=== PATIENT | male | born 1960 | race American Indian/Alaskan Native ===

== ENCOUNTER 2016-12-04 09:55 | Emergency (ER) | payer OTHER ==
[2016-12-04 10:14] VITALS: TEMP 98.1
--- NOTE | 2016-12-04 10:59 | ED PDOC ---
Arrival/HPI - General Chief Complaint: Upper Extremity Problem/Injury Time Seen by Provider: 12/04/16 10:58 Historian: Patient - History of Present Illness Narrative History of Present Illness (Text): 12/04/16 10:59 This 55 yo male presents to this ED c/o facial rash x [employer]. Patient stated he applied OTC Cortizone 10 on his face, which it improved his rash. Patient is requesting a "shot" for his facial/allergy rash. Patient also stated that on his way to the ED, he noticed a few b/l thigh insect bites. He also stated his right anterior shoulder is painful x 1 week. Denies trauma, heavy lifting, fever, recent travel, sick contact, bed bugs, sob, wheezing, cp, abdominal pain , groin pain, dizziness, or abnormal gait. Time/Duration: Other (see hpi) Context: Home Past Medical History - Provider Review Nursing Documentation Reviewed: Yes - Infectious Disease Hx of Infectious Diseases: None - Psychiatric Hx Substance Use: No Family/Social History - Physician Review Nursing Documentation Reviewed: Yes Family/Social History: No Known Family HX Smoking Status: Current Some Days Smoker Hx Alcohol Use: No Hx Substance Use: No Allergies/Home Meds Allergies/Adverse Reactions: Allergies No Known Allergies Allergy (Verified 12/04/16 10:14) Review of Systems - Review of Systems Constitutional: Normal. absent: Fatigue, Weight Change, Fevers Eyes: Normal ENT: Normal Respiratory: Normal. absent: SOB, Cough, Sputum Cardiovascular: Normal. absent: Chest Pain, Palpitations Gastrointestinal: Normal. absent: Abdominal Pain, Nausea, Vomiting Genitourinary Male: Normal Musculoskeletal: Normal Skin: Rash Neurological: Normal. absent: Headache, Dizziness, Focal Weakness, Gait Changes , Speech Changes Endocrine: Normal Hemo/Lymphatic: Normal Psychiatric: Normal Physical Exam Vital Signs Temp Pulse Resp BP Pulse Ox 12/04/16 11:23 65 18 134/79 98 12/04/16 10:10 98.1 F 67 16 136/82 99 Temperature: Afebrile Blood Pressure: Normal Pulse: Regular Respiratory Rate: Normal Appearance: Positive for: Well-Appearing, Non-Toxic, Comfortable Pain Distress: None Mental Status: Positive for: Alert and Oriented X 3 - Systems Exam Head: Present: Atraumatic, Normocephalic Pupils: Present: PERRL Extroacular Muscles: Present: EOMI Conjunctiva: Present: Normal Mouth: Present: Moist Mucous Membranes Pharnyx: Present: Normal. No: ERYTHEMA, EXUDATE, TONSILS ENLARGED Neck: Present: Normal Range of Motion, Trachea Midline. No: Meningeal Signs Respiratory/Chest: Present: Clear to Auscultation, Good Air Exchange. No: Respiratory Distress, Accessory Muscle Use Cardiovascular: Present: Regular Rate and Rhythm, Normal S1, S2. No: Murmurs Abdomen: Present: Normal Bowel Sounds. No: Tenderness, Distention, Peritoneal Signs Back: Present: Normal Inspection. No: CVA Tenderness Upper Extremity: Present: Normal Inspection, Normal ROM, NORMAL PULSES, Neurovascularly Intact, Capillary Refill < 2s. No: Cyanosis, Edema, Tenderness , Erythema, Temperature Abnormalties Lower Extremity: Present: NORMAL PULSES, Normal ROM, Neurovascularly Intact, Capillary Refill < 2 s, Other ((+) insect bite like skin lesion b/l thighs. Approx. 4 of them. No abscess, cellulitis, or drainage). No: Edema, Erythema, Temperature Abnormalties Neurological: Present: GCS=15, CN II-XII Intact, Speech Normal, Motor Func Grossly Intact, Normal Sensory Function, Normal Cerebellar Funct, Gait Normal, Memory Normal Skin: Present: Warm, Dry, Normal Color. No: Rashes Psychiatric: Present: Alert, Oriented x 3, Normal Insight, Normal Concentration Medical Decision Making ED Course and Treatment: 12/04/16 12:03 Re-evaluation. Patient feels better. Discussed results and plan with patient who expresses understanding. Counseling was provided regarding the diagnosis and prognosis. All questions answered and there is agreement with the plan to discharge home with instructions. Patient stable for discharge. Return if symptoms persist or worsen. 12/04/16 12:04 Patient understands risk of AVN of hips, dm, allergic reaction, or glaucoma when using Decadron. He still requested Decadron IM Re-evaluation Time: 12:03 Reassessment Condition: Re-examined, Improved - RAD Interpretation Narrative RAD Interpretations (Text): 12/04/16 12:00 Accession No. : [id number] Patient Name / ID : LAW BENTLEY / [id number] Exam Date : 12/04/2016 11:21:58 ( Approved ) Study Comment : Sex / Age : M / 55Y Creator : Devonte Harrison MD Dictator : Devonte Harrison MD Knife Setter : City Auditor : Devonte Harrison MD Approver2 : Report Date : 12/04/2016 11:54:39 My Comment : PROCEDURE: Radiographs of the Right Shoulder HISTORY: pain COMPARISON: No prior. FINDINGS: BONES: Normal. No fracture. JOINTS: Normal. Glenohumeral and acromioclavicular joints preserved. No osteoarthritis. SOFT TISSUES: Normal. OTHER FINDINGS: None. IMPRESSION: Normal radiographs of the right shoulder. Radiology Orders: 12/04/16 10:58 SHOULDER RIGHT [RAD] Stat - Medication Orders Current Medication Orders: Discontinued Medications Dexamethasone (Decadron Inj) 10 mg IM STAT STA Stop: 12/04/16 11:00 Last Admin: 12/04/16 11:13 Dose: 10 mg Disposition/Present on Arrival - Present on Arrival Any Indicators Present on Arrival: No History of DVT/PE: No History of Uncontrolled Diabetes: No Urinary Catheter: No History of Decub. Ulcer: No History Surgical Site Infection Following: None - Disposition Have Diagnosis and Disposition been Completed?: Yes Diagnosis: Shoulder pain, Rash and nonspecific skin eruption Disposition: HOME/ ROUTINE Disposition Time: 12:03 Patient Plan: Discharge Patient Problems: Current Active Problems Problem Status Onset Rash and nonspecific skin eruption Acute Shoulder pain Acute Condition: GOOD Discharge Instructions (ExitCare): Shoulder Pain (ED), Acute Rash (ED) Additional Instructions: Call private doctor for follow up visit in 2-3 days. Take medication as instructed. return to emergency if symptoms worsen. Prescriptions: Famotidine [Pepcid] 40 mg PO DAILY #10 tablet Mupirocin 2% Ointment [Bactroban Ointment] 1 appl TP BID #1 tube Naproxen 500 mg PO BID PRN #14 tab PRN Reason: Pain, Severe (8-10) Referrals: Agnes Carter, [Primary Care Provider] - Follow up with primary Nimo Yadav MD [Staff Provider] - Follow up with primary Devonte Coleman DO [Staff Provider] - Follow up with primary Forms: [employer] (Frisian)
[2016-12-04 11:23] VITALS: BP 134/79; PULSE 65; RESP 18; O2SAT 98
--- NOTE | 2016-12-04 11:56 | RAD ---
PROCEDURE: Radiographs of the Right Shoulder HISTORY: pain COMPARISON: No prior. FINDINGS: BONES: Normal. No fracture. JOINTS: Normal. Glenohumeral and acromioclavicular joints preserved. No osteoarthritis. SOFT TISSUES: Normal. OTHER FINDINGS: None. IMPRESSION: Normal radiographs of the right shoulder.
== END 2016-12-04 12:16 | disposition home or self-care (01) ==
LOC: ED 09:55
DX: R21 Rash and other nonspecific skin eruption (principal); M25.511 Pain in right shoulder
CPT/HCPCS: 73030; 96372; 99283; J1100

== ENCOUNTER 2016-12-10 01:10 | Inpatient (IN) | payer OTHER ==
[2016-12-10 01:25] VITALS: BMI 29.6
[2016-12-10] MEDS ORDERED: Vancomycin 1gm in NS 250ml 1 GM/250 ML BAG IVPB STA (01:37)
--- NOTE | 2016-12-10 01:37 | ED PDOC ---
Arrival/HPI <Winston Lynch - Last Filed: 12/10/16 01:56> - General Historian: Patient - History of Present Illness Time/Duration: 24 hours Symptom Onset: Sudden Symptom Course: Worsening Context: Home <KalyaniTeetee - Last Filed: 12/10/16 04:19> - General Time Seen by Provider: 12/10/16 01:15 - History of Present Illness Narrative History of Present Illness (Text): 12/10/16 01:40 55 year old male with no significant past medical history presents for right knee swelling that began yesterday. Patient states that he came to ED 1 week ago for small "bug bites" that he noticed on both of his legs. He was given Mupirocin ointment to apply to effected areas. Patient then noticed swelling and warmth yesterday on his right knee. He is not able to bend it all the way due to pain. Patient denies having any F/C. Patient did not notice any specific insect on him when he got the "bites" including tics. (Teetee Auguste) Past Medical History - Provider Review Nursing Documentation Reviewed: Yes <Winston Lynch - Last Filed: 12/10/16 01:56> - Provider Review Nursing Documentation Reviewed: Yes - Infectious Disease Hx of Infectious Diseases: None - Cardiac Hx Cardiac Disorders: No - Pulmonary Hx Respiratory Disorders: No - Neurological Hx Neurological Disorder: No - HEENT Hx HEENT Disorder: No - Renal Hx Renal Disorder: No - Endocrine/Metabolic Hx Endocrine Disorders: No - Hematological/Oncological Hx Blood Disorders: No - Integumentary Hx Dermatological Disorder: No - Musculoskeletal/Rheumatological Hx Musculoskeletal Disorders: No - Gastrointestinal Hx Gastrointestinal Disorders: No - Genitourinary/Gynecological Hx Genitourinary Disorders: No - Psychiatric Hx Psychophysiologic Disorder: No Hx Substance Use: No - Anesthesia Hx Anesthesia: No <Teetee Auguste - Last Filed: 12/10/16 04:19> Family/Social History - Physician Review Nursing Documentation Reviewed: Yes Family/Social History: Unknown Family HX <JilmaddieWinston - Last Filed: 12/10/16 01:56> - Physician Review Nursing Documentation Reviewed: Yes Family/Social History: Unknown Family HX Smoking Status: Current Some Days Smoker Hx Alcohol Use: No Hx Substance Use: No <Teetee Auguste - Last Filed: 12/10/16 04:19> Allergies/Home Meds <Winston Lynch - Last Filed: 12/10/16 01:56> <Teetee Auguste - Last Filed: 12/10/16 04:19> Allergies/Adverse Reactions: Allergies No Known Allergies Allergy (Verified 12/10/16 01:25) Review of Systems - Review of Systems Constitutional: Normal. absent: Fatigue, Fevers Eyes: Normal. absent: Vision Changes ENT: Normal. absent: Sore Throat, Rhinorrhea Respiratory: Normal. absent: SOB, Cough, Wheezing Cardiovascular: Normal. absent: Chest Pain, Palpitations Gastrointestinal: Normal. absent: Abdominal Pain, Constipation, Diarrhea, Nausea, Vomiting Genitourinary Male: Normal. absent: Dysuria, Frequency Musculoskeletal: Normal. absent: Arthralgias, Back Pain Skin: Cellulitis (right knee), Other (small "bug bites" on B/L legs) Neurological: Normal. absent: Headache, Dizziness Hemo/Lymphatic: Normal. absent: Adenopathy Psychiatric: Normal. absent: Anxiety, Depression <Teetee Auguste - Last Filed: 12/10/16 04:19> Physical Exam Temperature: Afebrile Blood Pressure: Normal Pulse: Regular Respiratory Rate: Normal Appearance: Positive for: Well-Appearing, Non-Toxic, Comfortable Pain Distress: Mild Mental Status: Positive for: Alert and Oriented X 3 - Systems Exam Head: Present: Atraumatic, Normocephalic Pupils: Present: PERRL Mouth: Present: Moist Mucous Membranes Neck: Present: Normal Range of Motion. No: MIDLINE TENDERNESS Respiratory/Chest: Present: Clear to Auscultation, Good Air Exchange. No: Respiratory Distress, Accessory Muscle Use Cardiovascular: Present: Regular Rate and Rhythm, Normal S1, S2. No: Murmurs, Irregular Rhythm Abdomen: Present: Normal Bowel Sounds. No: Tenderness, Distention, Peritoneal Signs, Rebound, Guarding Lower Extremity: Present: Other (right knee swelling noted with erythema and warmth. Tender to touch. limited ROM due to pain. Area of blood drainage noted at knee) Neurological: Present: GCS=15 Skin: Present: Other (cellulitis noted at right knee. small ruptured vesicles noted on B/L LE) Psychiatric: Present: Alert, Oriented x 3, Normal Insight, Normal Concentration <Teetee Auguste - Last Filed: 12/10/16 04:19> Vital Signs Temp Pulse Resp BP Pulse Ox 12/10/16 04:13 98.0 F 80 16 99 12/10/16 01:38 98.3 F 80 17 125/75 97 Medical Decision Making <Winston Lynch - Last Filed: 12/10/16 01:56> <Teetee Auguste - Last Filed: 12/10/16 04:19> ED Course and Treatment: Impression: Pt seen and evaluated with medical logistics specialist. Pt, with no significant past medical history, presented for right knee swelling since yesterday. Pt was seen in the Emergency department for multiple small insect bites to bilateral legs and d/c home with antibiotic ointment, but devloped swelling/warmth to his right knee. Aware and agree with HPI, clinical findings, plan, and management. Plan: -- XR RIght Knee -- Labs, blood cultures -- IV fluids -- Vancomycin -- Reassess and disposition (Winston Lynch) 12/10/16 01:46 55 y/o male presents with cellulitis vs. septic right knee joint Will check: CBC CMP Blood cultures Patient will be given Vancomycin 1 gm and NS 1 L bolus 12/10/16 04:16 LE US is negative. Right knee xray was reviewed and does not show signs of osteomyelitis. Will reach out to Dr. Franco 12/10/16 04:19 Dr. Franco accepts pt. (Teetee Auguste) - Lab Interpretations Lab Results: 12/10/16 02:00 12/10/16 02:00 Lab Results 12/10/16 02:00: Sodium 143, Potassium 3.5 L, Chloride 109 H, Carbon Dioxide 25, Anion Gap 13, BUN 23 H, Creatinine 1.1, Est GFR ( Amer) > 60, Est GFR ( Non-Af Amer) > 60, Random Glucose 118 H, Calcium 8.9, Total Bilirubin 0.6, AST 28, ALT 27, Alkaline Phosphatase 64, Total Protein 6.5, Albumin 3.4, Globulin 3.1, Albumin/Globulin Ratio 1.1 12/10/16 02:00: WBC 13.3 H, RBC 4.20, Hgb 12.2 L, Hct 36.7 L, MCV 87.4, MCH 29.0 , MCHC 33.2, RDW 12.8, Plt Count 186, MPV 10.2 - RAD Interpretation Narrative RAD Interpretations (Text): 12/10/16 04:18 LE US is negative. Knee xray reviewed and shows no overt signs of cellulitis. (Teetee Auguste) Radiology Orders: 12/10/16 01:37 KNEE 3 VIEWS RT [RAD] Stat 12/10/16 02:26 DUPLEX LOWER EXTRM VEIN BILAT [US] Stat - Medication Orders Current Medication Orders: Discontinued Medications Vancomycin HCl (Vancomycin 1gm) 1 gm in 250 mls @ 167 mls/hr IVPB STAT STA PRN Reason: Protocol Stop: 12/10/16 03:06 Last Admin: 12/10/16 02:13 Dose: 167 mls/hr Sodium Chloride (Sodium Chloride 0.9%) 1,000 mls @ 999 mls/hr IV .Q1H1M STA Stop: 12/10/16 02:47 Last Admin: 12/10/16 02:21 Dose: 999 mls/hr Disposition/Present on Arrival <Winston Lynch - Last Filed: 12/10/16 01:56> - Present on Arrival Any Indicators Present on Arrival: No History of DVT/PE: No History of Uncontrolled Diabetes: No Urinary Catheter: No History of Decub. Ulcer: No History Surgical Site Infection Following: None - Disposition Have Diagnosis and Disposition been Completed?: Yes Disposition Time: 04:18 Patient Plan: Admission <Teetee Auguste - Last Filed: 12/10/16 04:19> - Disposition Diagnosis: Cellulitis Disposition: HOSPITALIZED Condition: STABLE Discharge Instructions (ExitCare): Cellulitis (ED)
[2016-12-10] MEDS ORDERED: Sodium Chloride 0.9% 1,000 ML IV STA ×2 (01:47→04:19)
[2016-12-10 02:28] LABS: HEMOGLOBIN 12.2 gm/dL (14.0-18.0); MEAN CELL VOLUME 87.4 fL (80.0-105.0); MEAN CORPUSCULAR HGB CONC 33.2 g/dl (31.0-37.0); MEAN PLATELET VOLUME 10.2 fl (7.0-11.0); RBC 4.2 10^6/uL (3.5-6.1); RED CELL DISTRIBUTION WIDTH 12.8 % (11.5-14.5); WHITE BLOOD COUNT 13.3 10^3/ul (4.5-11.0)
[2016-12-10 02:39] LABS: ALB/GLOB RATIO 1.1 (1.1-1.8); ALBUMIN 3.4 g/dL (3.0-4.8); ALT/SGPT 27 U/L (7-56); AST/SGOT 28 U/L (15-59); BLOOD UREA NITROGEN 23 mg/dL (7-21); CALCIUM 8.9 mg/dL (8.4-10.5); GFR AFRICAN-AMERICAN > 60; GFR NON-AFRICAN AMERICAN > 60
[2016-12-10] MEDS ORDERED: Piperacillin/Tazobact 3.375 gm 100 ML IVPB STA (04:20)
[2016-12-10] MEDS ORDERED: Potassium Chloride 20 mEq ER Tab PO ONE (10:21)
[2016-12-10] MEDS ORDERED: Sodium Chloride 0.45% 1,000 ML IV SCH (10:30)
[2016-12-10] MEDS: Vancomycin 1gm in NS 250ml 1 GM/250 ML BAG IVPB SCH ×2 (10:46→22:00)
--- NOTE | 2016-12-10 12:18 | RAD ---
PROCEDURE: Right Knee Radiographs. HISTORY: joint swelling COMPARISON: None. FINDINGS: BONES: Normal. No fracture. JOINTS: Normal. No osteoarthritis. JOINT EFFUSION: None. OTHER FINDINGS: There is soft tissue swelling anterior to the patella and patellar tendon IMPRESSION: No evidence of fracture
--- NOTE | 2016-12-10 12:44 | CP.PCM.CON ---
History of Present Illness - History of Present Illness History of Present Illness: 55 year old male with no significant PMH came in to [facility] complaining of right knee swelling since yesterday. He states that he apparently had something bite him in the area of the right knee about a week ago. Yesterday, swelling happened associated with purulent material oozing out. He denies animal contacts, no trips to wooded areas, no soaking legs in water, no swimming, no fever or chills, no nausea or vomiting, no headache or dizziness , no chest pain, no SOB, no cough or colds, no abdominal pain, no diarrhea, no dysuria. Infectious Diseases consult is requested to further evaluate and manage. Review of Systems - Review of Systems All systems: reviewed and no additional remarkable complaints except (as per HPI ) Past Patient History - Infectious Disease Hx of Infectious Diseases: None - Past Social History Smoking Status: Never Smoked - CARDIAC Hx Cardiac Disorders: No - PULMONARY Hx Respiratory Disorders: No - NEUROLOGICAL Hx Neurological Disorder: No - HEENT Hx HEENT Problems: No - RENAL Hx Chronic Kidney Disease: No - ENDOCRINE/METABOLIC Hx Endocrine Disorders: No - HEMATOLOGICAL/ONCOLOGICAL Hx Blood Disorders: No - INTEGUMENTARY Hx Dermatological Problems: No - MUSCULOSKELETAL/RHEUMATOLOGICAL Hx Falls: No - GASTROINTESTINAL Other/Comment: routine colonoscopy - GENITOURINARY/GYNECOLOGICAL Hx Genitourinary Disorders: No - PSYCHIATRIC Hx Psychophysiologic Disorder: No Hx Substance Use: No - SURGICAL HISTORY Hx Surgeries: No - ANESTHESIA Hx Anesthesia: No Meds Allergies/Adverse Reactions: Allergies Allergy/AdvReac Type Severity Reaction Status Date / Time No Known Allergies Allergy Verified 12/10/16 01:25 - Medications Medications: Current Medications Acetaminophen (Tylenol 325mg Tab) 650 mg PO Q4H PRN PRN Reason: Pain, Mild (1-3) Last Admin: 12/10/16 06:57 Dose: 650 mg Piperacillin Sod/Tazobactam Sod (Zosyn 3.375 In Ns 100ml) 100 mls @ 200 mls/hr IVPB Q8 RIGO PRN Reason: Protocol Stop: 12/10/16 22:29 Sodium Chloride (Sodium Chloride 0.45%) 1,000 mls @ 40 mls/hr IV .Q24H RIGO Ketorolac Tromethamine (Toradol) 30 mg IVP Q6H PRN PRN Reason: Pain, moderate (4-7) Mupirocin (Bactroban Ointment) 0 gm TOP BID RIGO Physical Exam - Constitutional Appears: Non-toxic, No Acute Distress - Head Exam Head Exam: NORMAL INSPECTION - ENT Exam ENT Exam: Mucous Membranes Moist - Neck Exam Neck exam: Negative for: Lymphadenopathy, Meningismus - Respiratory Exam Respiratory Exam: Decreased Breath Sounds - Cardiovascular Exam Cardiovascular Exam: +S1, +S2 - GI/Abdominal Exam GI & Abdominal Exam: Soft. absent: Tenderness - Extremities Exam Additional comments: right knee with some swelling on the medial portion; no note of fluid wave around the knee joint Results - Vital Signs Recent Vital Signs: Last Vital Signs Temp 98.3 F 12/10/16 07:59 Pulse 82 12/10/16 07:59 Resp 20 12/10/16 07:59 BP 137/86 12/10/16 07:59 Pulse Ox 96 12/10/16 07:59 - Labs Result Diagrams: 12/10/16 02:00 12/10/16 02:00 Assessment & Plan - Assessment and Plan (Free Text) Plan: assessment Systemic Inflammatory Response Syndrome, consider sepsis due to right knee area skin and skin structure infection, unlikely septic arthritis Plan Started patient on Vancomycin and Zosyn pending blood and wound cx follow up Ortho evaluation and recommendations follow up knee x-ray results will monitor clinically
[2016-12-10] MEDS: Piperacillin/Tazobact 3.375 gm 100 ML IVPB SCH ×2 (16:51→22:01)
--- NOTE | 2016-12-10 19:45 | CON ---
DATE: 12/10/2016 REASON FOR CONSULT: Right knee infection. HISTORY OF PRESENT ILLNESS: This is a 55-year-old gentleman who was admitted this morning for right knee pain and swelling. The patient said that approximately one week ago, he had an insect bite on his right knee and developed some swelling. He was seen in the emergency room and said he was given a steroid injection. Subsequently, he developed some increasing pain and swelling. He came back to the emergency room this morning and was admitted for right knee cellulitis and now presents for further orthopedic evaluation and treatment. He states that he has been able to put weight on it and bend his knee with some pain. PHYSICAL EXAMINATION: On examination of the right knee, there is a small almost pinpoint draining wound on the anterior aspect of the knee over his patella. There is some local swelling and some localized cellulitis in this area as well. No obvious knee effusion is appreciated. He is able to extend the knee to 0 and flex to about 95-100 degrees. His thigh and calf are soft and nontender. Grossly, he is neurologically intact. He demonstrates varus or valgus stability. He has a negative Jahaira's. LABORATORY DATA: X-rays show no obvious fractures or dislocation. There is some soft tissue swelling noted in the prepatellar region and there is questionable opacity also noted in this area, unclear if this is a foreign body or not. IMPRESSION: Right knee cellulitis with abscess. PLAN: The patient has not been n.p.o. and for now, he is currently stable on vancomycin and Zosyn. I did recommend possible irrigation and debridement for this. He understands and agrees with this. We are going to make him n.p.o. after midnight and possibly we plan on taking him to the OR tomorrow. Dominic Mei MD
[2016-12-11] MEDS: Piperacillin/Tazobact 3.375 gm 100 ML IVPB SCH ×2 (05:31→21:58)
[2016-12-11 07:56] LABS: HEMOGLOBIN 12.4 gm/dL (14.0-18.0); MEAN CELL VOLUME 87.1 fL (80.0-105.0); MEAN CORPUSCULAR HGB CONC 33.2 g/dl (31.0-37.0); MEAN PLATELET VOLUME 10.1 fl (7.0-11.0); RBC 4.28 10^6/uL (3.5-6.1); RED CELL DISTRIBUTION WIDTH 12.6 % (11.5-14.5); WHITE BLOOD COUNT 11.6 10^3/ul (4.5-11.0)
[2016-12-11 08:07] LABS: ALBUMIN 2.9 g/dL (3.0-4.8); ALT/SGPT 26 U/L (7-56); AST/SGOT 18 U/L (15-59); BLOOD UREA NITROGEN 20 mg/dL (7-21); CALCIUM 8.5 mg/dL (8.4-10.5); GFR AFRICAN-AMERICAN > 60; GFR NON-AFRICAN AMERICAN > 60
--- NOTE | 2016-12-11 08:22 | HP ---
HISTORY OF PRESENT ILLNESS: I was called down to the emergency room to check on Eladio Huber. He is now on the hospital bed. He is on IV antibiotics. He has a very bad right knee swelling and pus coming out of it. This is a 55-year-old -[place] male with right knee swelling, which began 24 hours earlier. He is putting antibiotic cream on it. He said it is some bug bite, he has had it on both of his legs, the left leg is not as bad. The cream did not help. It is very warm and he cannot bend it now. The right knee is swollen and cannot bend it, looks infected, it is warm to touch and he does not do well with antibiotic cream. PAST MEDICAL HISTORY: Nothing. PAST SURGICAL HISTORY: None. FAMILY HISTORY: Nothing in the family. There is cancer in his mother and father; breast with his mother, colon with his father and he already had a colonoscopy. SOCIAL HISTORY: He occasionally smokes tobacco. No drinking. ALLERGIES: NO KNOWN DRUG ALLERGIES. MEDICATIONS: He was taking Bactroban cream for the knee swelling. REVIEW OF SYSTEMS: No acute vision changes or hearing changes. No sore throat. No headaches. No neck pain. No chest pain. No palpitations. No shortness of breath, coughing or wheezing. No abdominal pain, constipation, diarrhea, nausea or vomiting. No problems urinating. He does have a right knee swelling, redness, hot to touch, from bug bites, he has few bug bites on the left leg, but they did well with the Bactroban cream. No anxiety, no depression. No numbness or tingling. Concerned about the right knee. PHYSICAL EXAMINATION: VITAL SIGNS: He has a 98.3 temperature, 80 pulse, 17 respiratory rate, 125/75 blood pressure, 97% O2 saturation on room air. HEENT: Head is atraumatic, normocephalic. Extraocular muscles intact. Pupils are equal and reactive to light and accommodation. Throat is moist. NECK: Supple. HEART: Regular rate, normal S1 and S2. LUNGS: Decreased breath sounds, but clear to auscultation bilaterally. ABDOMEN: Soft, nontender. Positive bowel sounds. No guarding, no rebound, no CVA tenderness. EXTREMITIES: The right knee is quite swollen and red, warm to touch, decreased range of motion, tender to palpation, remove the tape with the bandage was painful and pus was coming out of it. NEUROLOGY: GCS is 15. Cranial nerves II-XII grossly intact. He is alert and oriented x3. I believe this would be an inpatient admission. LABORATORY DATA: He has 143 sodium, potassium 3.5, I replace the potassium, BUN 23, creatinine 1.1, GFR is greater than 60. He is on IV fluids. Sugar is 118. Calcium is 8.9. Total bilirubin is 0.6, AST is 28, ALT is 27, alkaline phosphatase is 54, total protein is 6.5, albumin is 3.4, globulin 3.1. White count is elevated at 13.3, hemoglobin 12.2, hematocrit 36.7 and platelets 186. There is an x-ray of the knee that is pending. There is an ultrasound of the leg that is pending rule out DVT. IMPRESSION AND PLAN: We will have a consult with Dr. Mei, his orthopedic doctor, for possible open up the right knee. He is also having the right shoulder pain and he has Infectious Disease consult. I will put him on Zosyn. vancomycin in the emergency room, replace potassium. We will check his labs tomorrow, watch his hemoglobin and his white count. septic right knee joint skin infection with swelling and pus. Failed outpatient treatment with Bactroban cream and abs. Chao Franco DO [facility]ERE[facility]ise
--- NOTE | 2016-12-11 08:47 | CP.PCM.PN ---
Subjective - Date & Time of Evaluation Date of Evaluation: 12/11/16 Time of Evaluation: 08:45 - Subjective Subjective: Pt feels slight improvement. Tmax 99.7 R knee: still with swelling 2-3 drops of purulent material expressed from wound calf soft NVI distally Plan I&D today Objective - Vital Signs/Intake and Output Vital Signs (last 24 hours): Temp Pulse Resp BP Pulse Ox 99.7 F H 80 20 124/79 97 12/11/16 08:09 12/11/16 08:09 12/11/16 08:09 12/11/16 08:09 12/11/16 08:09 Intake and Output: 12/11/16 12/11/16 06:59 18:59 Intake Total 860 Balance 860 - Medications Medications: Current Medications Acetaminophen (Tylenol 325mg Tab) 650 mg PO Q4H PRN PRN Reason: Pain, Mild (1-3) Last Admin: 12/10/16 06:57 Dose: 650 mg Enoxaparin Sodium (Lovenox) 40 mg SC DAILY [facility] PRN Reason: Protocol Piperacillin Sod/Tazobactam Sod (Zosyn 3.375 In Ns 100ml) 100 mls @ 200 mls/hr IVPB Q8 [facility] PRN Reason: Protocol Stop: 12/17/16 14:01 Last Admin: 12/11/16 05:31 Dose: 200 mls/hr Sodium Chloride (Sodium Chloride 0.45%) 1,000 mls @ 40 mls/hr IV .Q24H [facility] Last Admin: 12/10/16 10:45 Dose: 40 mls/hr Vancomycin HCl (Vancomycin 1gm) 1 gm in 250 mls @ 167 mls/hr IVPB Q12H [facility] PRN Reason: Protocol Stop: 12/17/16 10:46 Last Admin: 12/10/16 22:00 Dose: 167 mls/hr Ketorolac Tromethamine (Toradol) 30 mg IVP Q6H PRN PRN Reason: Pain, moderate (4-7) Last Admin: 12/10/16 19:04 Dose: 30 mg Mupirocin (Bactroban Ointment) 0 gm TOP BID [facility] Last Admin: 12/10/16 20:38 Dose: Not Given - Labs Labs: 12/11/16 07:35 12/11/16 07:35
[2016-12-11] MEDS: Enoxaparin 40 mg Syringe SC SCH (10:21)
[2016-12-11] MEDS: Vancomycin 1gm in NS 250ml 1 GM/250 ML BAG IVPB SCH ×2 (10:22→21:57)
--- NOTE | 2016-12-11 11:15 | RAD ---
HISTORY: pre op COMPARISON: No prior. TECHNIQUE: Chest PA and lateral FINDINGS: LUNGS: No active pulmonary disease. PLEURA: No significant pleural effusion identified. No pneumothorax apparent. CARDIOVASCULAR: Normal. OSSEOUS STRUCTURES: No significant abnormalities. VISUALIZED UPPER ABDOMEN: Normal. OTHER FINDINGS: None. IMPRESSION: No acute cardiopulmonary disease.
--- NOTE | 2016-12-11 11:56 | PN ---
SUBJECTIVE: I saw him, resting comfortably in bed. His knee is bandaged, still painful and swollen. He was seen by the orthopedic doctor. I believe they are going to do an irrigation and debridement today. He is n.p.o. at this time after midnight due to pus coming out of the right knee and the pain and the decreased range of motion. He was also being seen by infectious disease who called them systemic inflammatory response syndrome, sepsis to the right knee, skin and structure infection. He is on vancomycin and Zosyn. I think between the I and D and the IV antibiotics, he should be okay. PHYSICAL EXAMINATION: VITAL SIGNS: He has a 99.7 temperature high, 80 pulse, 124/79 blood pressure, 20 respiratory rate, 97% O2 saturation on room air. HEENT: Head is atraumatic, normocephalic. Throat is moist. NECK: Supple. HEART: Regular rate. LUNGS: Decreased breath sounds, but clear. ABDOMEN: Soft. EXTREMITIES: Right knee is swollen. It is red, hot, tender, pus coming out. Needs to have it opened up and he is on IV antibiotics. LABORATORY DATA: He has 11.6 white count, already improving with the antibiotics; 12.4 hemoglobin; 37.3 hematocrit; 177 platelets. He has a 139 sodium; potassium is 4; BUN is 20; creatinine 1.1; GFR is greater than 60; sugar is 100; calcium is 8.5; total bilirubin is 1; AST is 18; ALT is 26; alkaline phosphatase is 58; total protein is 5.8. PLAN: We will continue aggressive treatment and care for his SIRS and infected knee. IV antibiotics and I and D today with ortho. We will check up labs tomorrow. Chao Franco DO
[2016-12-11] MEDS ORDERED: Midazolam 2 MG/2 ML VIAL ONE (12:18)
[2016-12-11] MEDS ORDERED: Propofol 10 mg/ml Inj (20 ML) ONE (12:18)
[2016-12-11] MEDS ORDERED: Lactated Ringer's 1,000 ML IV SCH (13:06)
[2016-12-11] MEDS ORDERED: HYDROmorphone 0.5 mg/0.5 ml ISec IVP PRN (13:06)
[2016-12-11] MEDS ORDERED: HYDROmorphone 0.5 mg/0.5 ml ISec ONE (13:13)
--- NOTE | 2016-12-11 13:18 | CARD ---
APPROVED REPORT EKG Measurement Heart [id number] <Conclusion> Normal sinus rhythm Normal ECG
[2016-12-11] MEDS ORDERED: Sodium Chloride 0.45% 500ml 500 ML SOL IV SCH (14:45)
[2016-12-11 15:07] LABS: INR 1.15 (0.93-1.08); PROTHROMBIN TIME 12.4 Seconds (9.9-11.8)
--- NOTE | 2016-12-11 17:58 | US ---
HISTORY: Leg pain and swelling. Evaluate for DVT PHYSICIAN(S): David Goode MD. TECHNIQUE: Duplex sonography and color-flow Doppler with graded compression were used to evaluate the deep venous systems of both lower extremities. FINDINGS: The visualized deep venous systems of both lower extremities are sonographically normal and compressible. Normal wave forms and augmentation are seen. There is no sonographic evidence for deep venous thrombosis in the visualized segments of both lower extremities. IMPRESSION: No sonographic evidence for deep venous thrombosis in the visualized segments of both lower extremities.
--- NOTE | 2016-12-11 20:51 | CP.PCM.PN ---
Subjective - Date & Time of Evaluation Date of Evaluation: 12/11/16 Time of Evaluation: 10:20 - Subjective Subjective: Comfortable but still with swelling of the right knee area, with drainage. No fevers overnight. Objective - Vital Signs/Intake and Output Vital Signs (last 24 hours): Temp Pulse Resp BP Pulse Ox 99.7 F H 80 20 124/79 97 12/11/16 08:09 12/11/16 08:09 12/11/16 08:09 12/11/16 08:09 12/11/16 08:09 Intake and Output: 12/11/16 12/11/16 06:59 18:59 Intake Total 860 Balance 860 - Medications Medications: Current Medications Acetaminophen (Tylenol 325mg Tab) 650 mg PO Q4H PRN PRN Reason: Pain, Mild (1-3) Last Admin: 12/10/16 06:57 Dose: 650 mg Enoxaparin Sodium (Lovenox) 40 mg SC DAILY [facility] PRN Reason: Protocol Piperacillin Sod/Tazobactam Sod (Zosyn 3.375 In Ns 100ml) 100 mls @ 200 mls/hr IVPB Q8 [facility] PRN Reason: Protocol Stop: 12/17/16 14:01 Last Admin: 12/11/16 05:31 Dose: 200 mls/hr Sodium Chloride (Sodium Chloride 0.45%) 1,000 mls @ 40 mls/hr IV .Q24H [facility] Last Admin: 12/10/16 10:45 Dose: 40 mls/hr Vancomycin HCl (Vancomycin 1gm) 1 gm in 250 mls @ 167 mls/hr IVPB Q12H [facility] PRN Reason: Protocol Stop: 12/17/16 10:46 Last Admin: 12/10/16 22:00 Dose: 167 mls/hr Ketorolac Tromethamine (Toradol) 30 mg IVP Q6H PRN PRN Reason: Pain, moderate (4-7) Last Admin: 12/10/16 19:04 Dose: 30 mg Mupirocin (Bactroban Ointment) 0 gm TOP BID [facility] Last Admin: 12/10/16 20:38 Dose: Not Given - Labs Labs: 12/11/16 07:35 12/11/16 07:35 - Constitutional Appears: Non-toxic, No Acute Distress - Head Exam Head Exam: NORMAL INSPECTION - ENT Exam ENT Exam: Mucous Membranes Moist - Neck Exam Neck Exam: absent: Meningismus - Respiratory Exam Respiratory Exam: Decreased Breath Sounds - Cardiovascular Exam Cardiovascular Exam: +S1, +S2 - GI/Abdominal Exam GI & Abdominal Exam: Soft. absent: Tenderness - Extremities Exam Additional comments: right knee with dressings in place Assessment and Plan - Assessment and Plan (Free Text) Plan: assessment Systemic Inflammatory Response Syndrome, consider sepsis due to right knee area skin and skin structure infection, unlikely septic arthritis Plan continue Vancomycin and Zosyn day 2; blood cx are negative; patient is for I and D today by Ortho and will await OR findings and cultures will continue to monitor clinically
--- NOTE | 2016-12-12 00:46 | OP ---
PROCEDURE DATE: 12/11/2016 PREOPERATIVE DIAGNOSIS: Right knee prepatellar abscess. POSTOPERATIVE DIAGNOSIS: Right knee prepatellar abscess. PROCEDURE: Irrigation and debridement of right knee abscess and application of wound wax. SURGEON: Dr. Mei. TYPE OF ANESTHESIA: General. COMPLICATIONS: None. ESTIMATED BLOOD LOSS: 15 mL. INDICATION FOR PROCEDURE: The patient is a 55-year-old gentleman who approximately 1 week ago sustained an insect bite tot eh right knee. He subsequently developed pain and swelling and was admitted to the hospital on 12/10. He was started on IV antibiotics. On exam, the patient was noted to swelling along the anterior aspect of the knee. No obvious knee effusion was appreciated. The patient was noted to have what appears to be a pustule that was draining small amounts of purulent material. Recommendations were for irrigation and debridement of the abscess. The risks, benefits and alternative of the procedure were discussed with the patient and informed consent was obtained. DESCRIPTION OF PROCEDURE: After the surgical site was finally identified in the preoperative holding area, the patient was taken to the operating room and placed in supine on the operating table. After administration of general anesthesia, tourniquet was placed about the right thigh. Care was taken to make sure all bony prominences and nerves are well padded and protected. The right lower extremity was prepped and draped in the usual sterile fashion. The area over the pustule was incised longitudinally, approximately 2.5 cm. Using a clamp, the soft tissue was dissected and immediately 8 mL or so of purulent material was removed. Wound cultures x2 were taken and once the initial pus have been evacuated, the wound was inspected. There did not appear to be any violation of the medial retinaculum indicating that this was a superficial and not a deep infection. At this point, using blunt dissection, any adhesions were broken up underneath the medial aspect of the knee as well as towards the medial peripatellar region. Once this was done, approximately 3.5 L of pulse lavage with antibiotic solution was used to irrigate the area. was placed and please note any narcotic skin edges were sharply debrided. At this point, a wound VAC was inserted of the appropriate size and this was stuck into the wound and was hooked up into machine and good suction was achieved without any leaks. Sterile bandage was applied and the patient was awaken from the procedure and taken to recover room in stable condition. Dominic Mei MD
[2016-12-12] MEDS: Piperacillin/Tazobact 3.375 gm 100 ML IVPB SCH ×3 (06:06→21:38)
[2016-12-12 09:32] LABS: HEMOGLOBIN 12.5 g/dL (14.0-18.0); MEAN CELL VOLUME 86.7 fl (80.0-105.0); MEAN CORPUSCULAR HEMOGLOBIN 29.2 pg (25.0-35.0); MEAN CORPUSCULAR HGB CONC 33.7 g/dl (31.0-37.0); MEAN PLATELET VOLUME 9.9 fl (7.0-11.0); RBC 4.28 10^6/uL (3.5-6.1); RED CELL DISTRIBUTION WIDTH 12.3 % (11.5-14.5); WHITE BLOOD COUNT 9.3 10^3/ul (4.5-11.0)
[2016-12-12] MEDS: Vancomycin 1gm in NS 250ml 1 GM/250 ML BAG IVPB SCH ×2 (09:38→22:34)
[2016-12-12 09:40] LABS: ALBUMIN 2.9 g/dL (3.0-4.8); ALT/SGPT 27 U/L (7-56); AST/SGOT 16 U/L (15-59); BLOOD UREA NITROGEN 14 mg/dL (7-21); CALCIUM 8.3 mg/dL (8.4-10.5); GFR AFRICAN-AMERICAN > 60; GFR NON-AFRICAN AMERICAN > 60
--- NOTE | 2016-12-12 11:45 | PN ---
SUBJECTIVE: I saw Eladio resting in bed this morning reading newspaper. His right knee is a little bit better, less swollen, and less tender. He has got a drain in the knee, he was opened up yesterday to get some of the pus. It was cleaned out. He has been feeling better about that. He is on Bactroban cream, Lovenox, IV fluids, Toradol,Tylenol, vancomycin, IV Zofran and Zosyn IV. PHYSICAL EXAMINATION VITAL SIGNS: 97.9 temperature, 81 pulse 134/84 blood pressure ,20 respiratory rate and 90% O2 saturation on room air. HEENT: Head is atraumatic and normocephalic. Throat is moist. NECK: Supple. HEART: Regular rate. LUNGS: Clear to auscultation. ABDOMEN: Soft and nontender. Positive bowels sounds. EXTREMITIES: The right knee is less tender. He has got a drain in there, it is well bandaged up because they feel less tender which is great. LABORATORY DATA: He has a 11.6 white count yesterday,12.4 hemoglobin and platelets. Labs are pending today. Sodium of 139 yesterday potassium of 4 yesterday, BUN of 20, creatinine of 1.1. GFR is greater than 60, sugar is 100 yesterday, and calcium is 8.5. AST is 18, ALT is 26, and alkaline phosphatase is 58. ASSESSMENT AND PLAN: He is being seen by Infections Diseases and Orthopedics. He is comfortable overall. He has systemic inflammatory response syndrome, consider sepsis, right knee infection and on intravenous antibiotics. He had a procedure done, he has a drain in. Electrocardiogram was normal. Chest x-ray was normal. He states though finish with the intravenous antibiotics when the drain comes out or probably able to be discharged as per orthopedics improving, I think the procedure was worthwhile and helpful. If you have right knee infection, systemic inflammatory response syndrome. We will check a labs tomorrow. Chao Franco DO [facility]
--- NOTE | 2016-12-12 12:47 | CP.PCM.PN ---
Subjective - Date & Time of Evaluation Date of Evaluation: 12/12/16 Time of Evaluation: 12:45 - Subjective Subjective: Pt awake,alert. Feeling better, less pain. Afebrile, T max 99 R knee: dressing intact wound VAC with good seal, no leaks NVI distally calf soft, NT POD #1 cont abx VAC change on Objective - Vital Signs/Intake and Output Vital Signs (last 24 hours): Temp Pulse Resp BP Pulse Ox 99 F 77 18 141/83 97 12/12/16 07:30 12/12/16 07:30 12/12/16 07:30 12/12/16 07:30 12/12/16 07:30 Intake and Output: 12/12/16 12/12/16 06:59 18:59 Intake Total 1390 Output Total 800 Balance 590 - Medications Medications: Current Medications Acetaminophen (Tylenol 325mg Tab) 650 mg PO Q4H PRN PRN Reason: Pain, moderate (4-7) Enoxaparin Sodium (Lovenox) 40 mg SC DAILY [facility] PRN Reason: Protocol Last Admin: 12/11/16 10:21 Dose: Not Given Piperacillin Sod/Tazobactam Sod (Zosyn 3.375 In Ns 100ml) 100 mls @ 200 mls/hr IVPB Q8 [facility] PRN Reason: Protocol Stop: 12/17/16 14:01 Last Admin: 12/12/16 06:06 Dose: 200 mls/hr Sodium Chloride (Sodium Chloride 0.45%) 500 mls @ 40 mls/hr IV .[id number] [facility] Last Admin: 12/12/16 06:03 Dose: 40 mls/hr Vancomycin HCl (Vancomycin 1gm) 1 gm in 250 mls @ 167 mls/hr IVPB Q12H [facility] PRN Reason: Protocol Last Admin: 12/12/16 09:38 Dose: 167 mls/hr Ketorolac Tromethamine (Toradol) 30 mg IVP Q6H PRN PRN Reason: Pain, moderate (4-7) Last Admin: 12/11/16 19:39 Dose: 30 mg Mupirocin (Bactroban Ointment) 0 gm TOP BID [facility] Last Admin: 12/11/16 10:00 Dose: Not Given Ondansetron HCl (Zofran Inj) 4 mg IVP ONCE PRN PRN Reason: Nausea/Vomiting - Labs Labs: 12/12/16 09:00 12/12/16 09:00 PT 12.4 Seconds (9.9-11.8) H 12/11/16 14:30 INR 1.15 (0.93-1.08) H 12/11/16 14:30 APTT 29.0 Seconds (23.7-30.8) 12/11/16 14:30
[2016-12-12] MEDS: Enoxaparin 40 mg Syringe SC SCH (14:29)
--- NOTE | 2016-12-12 16:07 | CP.PCM.PN ---
Subjective - Date & Time of Evaluation Date of Evaluation: 12/12/16 Time of Evaluation: 09:45 - Subjective Subjective: Had I and D yesterday, feels better, no fevers overnight. Objective - Vital Signs/Intake and Output Vital Signs (last 24 hours): Temp Pulse Resp BP Pulse Ox 99 F 77 18 141/83 97 12/12/16 07:30 12/12/16 07:30 12/12/16 07:30 12/12/16 07:30 12/12/16 07:30 Intake and Output: 12/12/16 12/12/16 06:59 18:59 Intake Total 1390 Output Total 800 Balance 590 - Medications Medications: Current Medications Acetaminophen (Tylenol 325mg Tab) 650 mg PO Q4H PRN PRN Reason: Pain, moderate (4-7) Enoxaparin Sodium (Lovenox) 40 mg SC DAILY [facility] PRN Reason: Protocol Last Admin: 12/11/16 10:21 Dose: Not Given Piperacillin Sod/Tazobactam Sod (Zosyn 3.375 In Ns 100ml) 100 mls @ 200 mls/hr IVPB Q8 [facility] PRN Reason: Protocol Stop: 12/17/16 14:01 Last Admin: 12/12/16 06:06 Dose: 200 mls/hr Sodium Chloride (Sodium Chloride 0.45%) 500 mls @ 40 mls/hr IV .[id number] [facility] Last Admin: 12/12/16 06:03 Dose: 40 mls/hr Vancomycin HCl (Vancomycin 1gm) 1 gm in 250 mls @ 167 mls/hr IVPB Q12H [facility] PRN Reason: Protocol Last Admin: 12/11/16 21:57 Dose: 167 mls/hr Ketorolac Tromethamine (Toradol) 30 mg IVP Q6H PRN PRN Reason: Pain, moderate (4-7) Last Admin: 12/11/16 19:39 Dose: 30 mg Mupirocin (Bactroban Ointment) 0 gm TOP BID [facility] Last Admin: 12/11/16 10:00 Dose: Not Given Ondansetron HCl (Zofran Inj) 4 mg IVP ONCE PRN PRN Reason: Nausea/Vomiting - Labs Labs: 12/11/16 07:35 12/11/16 07:35 PT 12.4 Seconds (9.9-11.8) H 12/11/16 14:30 INR 1.15 (0.93-1.08) H 12/11/16 14:30 APTT 29.0 Seconds (23.7-30.8) 12/11/16 14:30 - Constitutional Appears: Non-toxic, No Acute Distress - Head Exam Head Exam: NORMAL INSPECTION - ENT Exam ENT Exam: Mucous Membranes Moist - Neck Exam Neck Exam: absent: Meningismus - Respiratory Exam Respiratory Exam: Decreased Breath Sounds - Cardiovascular Exam Cardiovascular Exam: +S1, +S2 - GI/Abdominal Exam GI & Abdominal Exam: Soft. absent: Tenderness - Extremities Exam Additional comments: right knee with dressings in place Assessment and Plan - Assessment and Plan (Free Text) Plan: assessment sepsis due to right knee area skin and skin structure infection (pre-patellar) S /P I and D POD #1 Plan continue Vancomycin and Zosyn day 3; blood cx are negative; follow up OR cultures will continue to monitor clinically
[2016-12-13] MEDS: Piperacillin/Tazobact 3.375 gm 100 ML IVPB SCH (05:55)
[2016-12-13 06:35] LABS: HEMOGLOBIN 12.8 g/dL (14.0-18.0); MEAN CELL VOLUME 85.9 fl (80.0-105.0); MEAN CORPUSCULAR HEMOGLOBIN 29.1 pg (25.0-35.0); MEAN CORPUSCULAR HGB CONC 33.9 g/dl (31.0-37.0); MEAN PLATELET VOLUME 9.6 fl (7.0-11.0); RBC 4.4 10^6/uL (3.5-6.1); RED CELL DISTRIBUTION WIDTH 12.4 % (11.5-14.5); WHITE BLOOD COUNT 7.5 10^3/ul (4.5-11.0)
[2016-12-13 07:01] LABS: ALT/SGPT 34 U/L (7-56); AST/SGOT 21 U/L (15-59); BLOOD UREA NITROGEN 13 mg/dL (7-21); CALCIUM 8.6 mg/dL (8.4-10.5); GFR AFRICAN-AMERICAN > 60; GFR NON-AFRICAN AMERICAN > 60
--- NOTE | 2016-12-13 10:03 | CP.PCM.PN ---
Subjective - Date & Time of Evaluation Date of Evaluation: 12/13/16 Time of Evaluation: 10:02 - Subjective Subjective: Pt awake, alert. Denies any sig pain. Afebrile R knee VAC with good seal NVI distally OOB VAC change tomorrow Objective - Vital Signs/Intake and Output Vital Signs (last 24 hours): Temp Pulse Resp BP Pulse Ox 97.5 F L 61 20 148/85 98 12/13/16 08:00 12/13/16 08:00 12/13/16 08:00 12/13/16 08:00 12/13/16 08:00 Intake and Output: 12/13/16 12/13/16 06:59 18:59 Intake Total 900 Output Total 1900 Balance -1000 - Medications Medications: Current Medications Acetaminophen (Tylenol 325mg Tab) 650 mg PO Q4H PRN PRN Reason: Pain, moderate (4-7) Enoxaparin Sodium (Lovenox) 40 mg SC DAILY [facility] PRN Reason: Protocol Last Admin: 12/12/16 14:29 Dose: 40 mg Sodium Chloride (Sodium Chloride 0.45%) 500 mls @ 40 mls/hr IV .[id number] [facility] Last Admin: 12/13/16 06:46 Dose: 40 mls/hr Vancomycin HCl (Vancomycin 1gm) 1 gm in 250 mls @ 167 mls/hr IVPB Q12H [facility] PRN Reason: Protocol Last Admin: 12/12/16 22:34 Dose: 167 mls/hr Ketorolac Tromethamine (Toradol) 30 mg IVP Q6H PRN PRN Reason: Pain, moderate (4-7) Last Admin: 12/11/16 19:39 Dose: 30 mg Mupirocin (Bactroban Ointment) 0 gm TOP BID [facility] Last Admin: 12/11/16 10:00 Dose: Not Given Ondansetron HCl (Zofran Inj) 4 mg IVP ONCE PRN PRN Reason: Nausea/Vomiting - Labs Labs: 12/13/16 05:30 12/13/16 05:30 PT 12.4 Seconds (9.9-11.8) H 12/11/16 14:30 INR 1.15 (0.93-1.08) H 12/11/16 14:30 APTT 29.0 Seconds (23.7-30.8) 12/11/16 14:30
[2016-12-13] MEDS: Enoxaparin 40 mg Syringe SC SCH (10:17)
[2016-12-13] MEDS: Vancomycin 1gm in NS 250ml 1 GM/250 ML BAG IVPB SCH ×2 (10:17→21:36)
--- NOTE | 2016-12-13 10:46 | PN ---
SUBJECTIVE: I saw the patient resting comfortably in bed. He has the wound VAC on his right knee status post I and D. He is on IV antibiotics. He is comfortable. Pain is less. He can move it more. PHYSICAL EXAMINATION VITAL SIGNS: He has 98.2 temperature, 72 pulse, 118/70 blood pressure, 20 respiratory rate, 98% O2 saturation on room air. HEENT: Head is atraumatic and normocephalic. HEART: Regular rate. LUNGS: Clear to auscultation. ABDOMEN: Soft. EXTREMITIES: No edema. The right knee is bandaged with a wound VAC and is less swollen and is less painful and he can move it better. MEDICATIONS: He is currently on Bactroban cream, Lovenox, IV fluids, Toradol, Tylenol, vancomycin, IV Zofran and Zosyn IV. LABORATORY DATA: He has a 140 sodium, potassium 4.1, BUN is 13, creatinine is 1, sugar is 96, GFR is greater than 60, calcium is 8.6, total bilirubin is 0.4, AST is 21, ALT is 34, alkaline phosphatase is 56, total protein is 6. White count is 7.5, it is better it has been, 12.8 hemoglobin, 37.8 hematocrit, 220 platelets. PLAN: He is being seen by infectious disease and by orthopedics. We will continue with aggressive treatment and care. We will check his labs tomorrow. He is improving. We will change the VAC on . We will see how he is doing at that time. As per orthopedics and infectious disease, continue IV antibiotics. Chao Franco DO
--- NOTE | 2016-12-13 15:04 | CP.PCM.PN ---
Subjective - Date & Time of Evaluation Date of Evaluation: 12/13/16 Time of Evaluation: 09:40 - Subjective Subjective: Comfortable in bed, not in distress, less pain in the right knee. No fevers. Objective - Vital Signs/Intake and Output Vital Signs (last 24 hours): Temp Pulse Resp BP Pulse Ox 98.2 F 72 20 118/73 98 12/12/16 16:16 12/12/16 16:16 12/12/16 16:16 12/12/16 16:16 12/12/16 16:16 Intake and Output: 12/13/16 12/13/16 06:59 18:59 Intake Total 900 Output Total 1900 Balance -1000 - Medications Medications: Current Medications Acetaminophen (Tylenol 325mg Tab) 650 mg PO Q4H PRN PRN Reason: Pain, moderate (4-7) Enoxaparin Sodium (Lovenox) 40 mg SC DAILY [facility] PRN Reason: Protocol Last Admin: 12/12/16 14:29 Dose: 40 mg Sodium Chloride (Sodium Chloride 0.45%) 500 mls @ 40 mls/hr IV .[id number] [facility] Last Admin: 12/13/16 06:46 Dose: 40 mls/hr Vancomycin HCl (Vancomycin 1gm) 1 gm in 250 mls @ 167 mls/hr IVPB Q12H [facility] PRN Reason: Protocol Last Admin: 12/12/16 22:34 Dose: 167 mls/hr Ketorolac Tromethamine (Toradol) 30 mg IVP Q6H PRN PRN Reason: Pain, moderate (4-7) Last Admin: 12/11/16 19:39 Dose: 30 mg Mupirocin (Bactroban Ointment) 0 gm TOP BID [facility] Last Admin: 12/11/16 10:00 Dose: Not Given Ondansetron HCl (Zofran Inj) 4 mg IVP ONCE PRN PRN Reason: Nausea/Vomiting - Labs Labs: 12/13/16 05:30 12/13/16 05:30 PT 12.4 Seconds (9.9-11.8) H 12/11/16 14:30 INR 1.15 (0.93-1.08) H 12/11/16 14:30 APTT 29.0 Seconds (23.7-30.8) 12/11/16 14:30 - Constitutional Appears: Non-toxic, No Acute Distress - Head Exam Head Exam: NORMAL INSPECTION - ENT Exam ENT Exam: Mucous Membranes Moist - Neck Exam Neck Exam: absent: Lymphadenopathy, Meningismus - Respiratory Exam Respiratory Exam: Decreased Breath Sounds - Cardiovascular Exam Cardiovascular Exam: +S1, +S2 - GI/Abdominal Exam GI & Abdominal Exam: Soft. absent: Tenderness Assessment and Plan - Assessment and Plan (Free Text) Plan: assessment sepsis due to right knee area skin and skin structure infection (pre-patellar) S /P I and D POD #2, MRSA growing Plan continue Vancomycin; blood cx are negative; OR cultures showing MRSA will continue to monitor clinically
[2016-12-14 08:02] LABS: MEAN CELL VOLUME 86.4 fl (80.0-105.0); MEAN CORPUSCULAR HEMOGLOBIN 29.1 pg (25.0-35.0); MEAN CORPUSCULAR HGB CONC 33.7 g/dl (31.0-37.0); MEAN PLATELET VOLUME 9.7 fl (7.0-11.0); RBC 4.47 10^6/uL (3.5-6.1); RED CELL DISTRIBUTION WIDTH 12.3 % (11.5-14.5); WHITE BLOOD COUNT 6.9 10^3/ul (4.5-11.0)
[2016-12-14 08:17] LABS: ALT/SGPT 43 U/L (7-56); AST/SGOT 32 U/L (15-59); BLOOD UREA NITROGEN 16 mg/dL (7-21); CALCIUM 8.9 mg/dL (8.4-10.5); GFR AFRICAN-AMERICAN > 60; GFR NON-AFRICAN AMERICAN > 60
--- NOTE | 2016-12-14 09:08 | CP.PCM.PN ---
Subjective - Date & Time of Evaluation Date of Evaluation: 12/14/16 Time of Evaluation: 09:07 - Subjective Subjective: Pt awake, alert Afebrile R knee: VAC changed wound clean no prulence swelling decreased significantly cont abx as per med/id recommend home wound vaC F/U in office 1 week Objective - Vital Signs/Intake and Output Vital Signs (last 24 hours): Temp Pulse Resp BP Pulse Ox 97.5 F L 61 20 148/85 98 12/13/16 08:00 12/13/16 08:00 12/13/16 08:00 12/13/16 08:00 12/13/16 08:00 Intake and Output: 12/14/16 12/14/16 06:59 18:59 Intake Total 1680 Output Total 1110 Balance 570 - Medications Medications: Current Medications Acetaminophen (Tylenol 325mg Tab) 650 mg PO Q4H PRN PRN Reason: Pain, moderate (4-7) Enoxaparin Sodium (Lovenox) 40 mg SC DAILY [facility] PRN Reason: Protocol Last Admin: 12/13/16 10:17 Dose: 40 mg Sodium Chloride (Sodium Chloride 0.45%) 500 mls @ 40 mls/hr IV .[id number] [facility] Last Admin: 12/13/16 21:36 Dose: 40 mls/hr Vancomycin HCl (Vancomycin 1gm) 1 gm in 250 mls @ 167 mls/hr IVPB Q12H [facility] PRN Reason: Protocol Last Admin: 12/13/16 21:36 Dose: 167 mls/hr Ketorolac Tromethamine (Toradol) 30 mg IVP Q6H PRN PRN Reason: Pain, moderate (4-7) Last Admin: 12/13/16 10:16 Dose: 30 mg Mupirocin (Bactroban Ointment) 0 gm TOP BID [facility] Last Admin: 12/11/16 10:00 Dose: Not Given Ondansetron HCl (Zofran Inj) 4 mg IVP ONCE PRN PRN Reason: Nausea/Vomiting - Labs Labs: 12/14/16 07:30 12/14/16 07:30 PT 12.4 Seconds (9.9-11.8) H 12/11/16 14:30 INR 1.15 (0.93-1.08) H 12/11/16 14:30 APTT 29.0 Seconds (23.7-30.8) 12/11/16 14:30
[2016-12-14] MEDS: Vancomycin 1gm in NS 250ml 1 GM/250 ML BAG IVPB SCH ×2 (10:04→21:17)
[2016-12-14] MEDS: Enoxaparin 40 mg Syringe SC SCH (10:04)
[2016-12-14 10:17] VITALS: RESP 18
--- NOTE | 2016-12-14 15:25 | CP.PCM.PN ---
Subjective - Date & Time of Evaluation Date of Evaluation: 12/14/16 Time of Evaluation: 10:00 - Subjective Subjective: Comfortable, less pain in the knee, no fevers overnight. Objective - Vital Signs/Intake and Output Vital Signs (last 24 hours): Temp Pulse Resp BP Pulse Ox 97.8 F 60 18 133/90 98 12/14/16 08:00 12/14/16 08:00 12/14/16 08:00 12/14/16 08:00 12/14/16 08:00 Intake and Output: 12/14/16 12/14/16 06:59 18:59 Intake Total 1680 640 Output Total 1110 Balance 570 640 - Medications Medications: Current Medications Acetaminophen (Tylenol 325mg Tab) 650 mg PO Q4H PRN PRN Reason: Pain, moderate (4-7) Enoxaparin Sodium (Lovenox) 40 mg SC DAILY [facility] PRN Reason: Protocol Last Admin: 12/14/16 10:04 Dose: 40 mg Sodium Chloride (Sodium Chloride 0.45%) 500 mls @ 40 mls/hr IV .[id number] [facility] Last Admin: 12/13/16 21:36 Dose: 40 mls/hr Vancomycin HCl (Vancomycin 1gm) 1 gm in 250 mls @ 167 mls/hr IVPB Q12H [facility] PRN Reason: Protocol Last Admin: 12/14/16 10:04 Dose: 167 mls/hr Ketorolac Tromethamine (Toradol) 30 mg IVP Q6H PRN PRN Reason: Pain, moderate (4-7) Last Admin: 12/13/16 10:16 Dose: 30 mg Mupirocin (Bactroban Ointment) 0 gm TOP BID [facility] Last Admin: 12/11/16 10:00 Dose: Not Given Ondansetron HCl (Zofran Inj) 4 mg IVP ONCE PRN PRN Reason: Nausea/Vomiting - Labs Labs: 12/14/16 07:30 12/14/16 07:30 PT 12.4 Seconds (9.9-11.8) H 12/11/16 14:30 INR 1.15 (0.93-1.08) H 12/11/16 14:30 APTT 29.0 Seconds (23.7-30.8) 12/11/16 14:30 - Constitutional Appears: Non-toxic, No Acute Distress - Head Exam Head Exam: NORMAL INSPECTION - ENT Exam ENT Exam: Mucous Membranes Moist - Neck Exam Neck Exam: absent: Lymphadenopathy, Meningismus - Respiratory Exam Respiratory Exam: Decreased Breath Sounds - Cardiovascular Exam Cardiovascular Exam: +S1, +S2 - GI/Abdominal Exam GI & Abdominal Exam: Soft. absent: Tenderness - Extremities Exam Additional comments: right knee with dressings in place/wound vacuum Assessment and Plan - Assessment and Plan (Free Text) Plan: assessment sepsis due to right knee area skin and skin structure infection (pre-patellar) S /P I and D POD #3, MRSA growing, clinically improving Plan continue Vancomycin day 3 (from I and D); blood cx are negative; OR cultures showing MRSA - would recommend changing to PO Zyvox to complete a 7 day course will continue to monitor clinically
--- NOTE | 2016-12-14 19:23 | PN ---
SUBJECTIVE: I saw the patient resting comfortably in bed. He is improving. His leg is less painful. He has got a wound VAC on it. He is getting IV antibiotics. Overall, he is in good spirits. He is eating well. PHYSICAL EXAMINATION VITAL SIGNS: 97.5 temp, 61 pulse, 148/85 blood pressure, 20 respiratory rate, 97% O2 sat on room air. HEENT: Head is atraumatic and normocephalic. Throat is moist. NECK: Supple. HEART: Regular rate. LUNGS: Clear to auscultation. ABDOMEN: Soft, nontender, positive bowel sounds. EXTREMITIES: The right knee is bandaged, better range of motion, less pain, less swelling. He has got a wound VAC on it. MEDICATIONS: He is currently on Bactroban cream, Lovenox, IV fluids, Toradol, Tylenol, vancomycin IV, and Zofran. LABORATORY DATA: He has a 6.9 white count, 13 hemoglobin, 38.6 hematocrit, 239 platelets. INR is 1.15. 146 sodium, potassium 4.1, BUN 16, creatinine 1. GFR is greater than 60. Sugar is 95. Calcium is 8.9. Total bilirubin is 0.4. AST is 32, ALT is 43, alk phos is 65, total protein 6.1, albumin is 3.0. ASSESSMENT AND PLAN: He is being seen by Infectious Disease and Orthopedics. Waiting for the decision if we can stop the wound VAC or send him home with the wound VAC or transfer him to oral antibiotics right now MRSA infection, right knee infection and pain and systemic inflammatory response syndrome. Hopefully, he will improve. Otherwise, we will check his labs tomorrow, continue with current treatment and plan as per Orthopedics and Infectious Disease. I answered many questions for Mr. Huber today. Chao Franco DO MTDD
[2016-12-15 07:06] LABS: ALBUMIN 3.1 g/dL (3.0-4.8); ALT/SGPT 45 U/L (7-56); AST/SGOT 27 U/L (15-59); BLOOD UREA NITROGEN 19 mg/dL (7-21); CALCIUM 8.8 mg/dL (8.4-10.5); GFR AFRICAN-AMERICAN > 60; GFR NON-AFRICAN AMERICAN > 60
[2016-12-15 07:11] LABS: HEMOGLOBIN 12.2 g/dL (14.0-18.0); MEAN CELL VOLUME 86.6 fl (80.0-105.0); MEAN CORPUSCULAR HEMOGLOBIN 29.1 pg (25.0-35.0); MEAN CORPUSCULAR HGB CONC 33.6 g/dl (31.0-37.0); MEAN PLATELET VOLUME 9.5 fl (7.0-11.0); RBC 4.19 10^6/uL (3.5-6.1); RED CELL DISTRIBUTION WIDTH 12.3 % (11.5-14.5); WHITE BLOOD COUNT 8.6 10^3/ul (4.5-11.0)
--- NOTE | 2016-12-15 07:43 | CP.PCM.PN ---
Subjective - Date & Time of Evaluation Date of Evaluation: 12/15/16 Time of Evaluation: 07:42 - Subjective Subjective: Awake, alert. No complaints of pain. Afebrile R knee: VAC in place with good seal calf soft NVI distally WBC 8.6 cont abx as per ID cont VAC Objective - Vital Signs/Intake and Output Vital Signs (last 24 hours): Temp Pulse Resp BP Pulse Ox 98.0 F 60 18 114/77 98 12/14/16 16:38 12/14/16 16:38 12/14/16 16:38 12/14/16 16:38 12/14/16 16:38 Intake and Output: 12/15/16 12/15/16 06:59 18:59 Intake Total 840 Output Total 1700 Balance -860 - Medications Medications: Current Medications Acetaminophen (Tylenol 325mg Tab) 650 mg PO Q4H PRN PRN Reason: Pain, moderate (4-7) Enoxaparin Sodium (Lovenox) 40 mg SC DAILY [facility] PRN Reason: Protocol Last Admin: 12/14/16 10:04 Dose: 40 mg Sodium Chloride (Sodium Chloride 0.45%) 500 mls @ 40 mls/hr IV .[id number] [facility] Last Admin: 12/15/16 01:57 Dose: 40 mls/hr Vancomycin HCl (Vancomycin 1gm) 1 gm in 250 mls @ 167 mls/hr IVPB Q12H [facility] PRN Reason: Protocol Last Admin: 12/14/16 21:17 Dose: 167 mls/hr Ketorolac Tromethamine (Toradol) 30 mg IVP Q6H PRN PRN Reason: Pain, moderate (4-7) Last Admin: 12/15/16 01:28 Dose: 30 mg Mupirocin (Bactroban Ointment) 0 gm TOP BID [facility] Last Admin: 12/11/16 10:00 Dose: Not Given Ondansetron HCl (Zofran Inj) 4 mg IVP ONCE PRN PRN Reason: Nausea/Vomiting - Labs Labs: 12/15/16 06:20 12/15/16 06:20 PT 12.4 Seconds (9.9-11.8) H 12/11/16 14:30 INR 1.15 (0.93-1.08) H 12/11/16 14:30 APTT 29.0 Seconds (23.7-30.8) 12/11/16 14:30
[2016-12-15 08:11] VITALS: BP 132/88; PULSE 65; TEMP 97.5; O2SAT 99
[2016-12-15] MEDS: Enoxaparin 40 mg Syringe SC SCH (09:53)
[2016-12-15] MEDS: Vancomycin 1gm in NS 250ml 1 GM/250 ML BAG IVPB SCH (09:53)
--- NOTE | 2016-12-15 17:34 | CP.PCM.PN ---
Subjective - Date & Time of Evaluation Date of Evaluation: 12/15/16 Time of Evaluation: 10:15 - Subjective Subjective: Feeling better, no fevers, no nausea, knee is much improved. Objective - Vital Signs/Intake and Output Vital Signs (last 24 hours): Temp Pulse Resp BP Pulse Ox 97.5 F L 65 18 132/88 99 12/15/16 08:11 12/15/16 08:11 12/15/16 08:11 12/15/16 08:11 12/15/16 08:11 Intake and Output: 12/15/16 12/15/16 06:59 18:59 Intake Total 1610 480 Output Total 1700 Balance -90 480 - Labs Labs: 12/15/16 06:20 12/15/16 06:20 PT 12.4 Seconds (9.9-11.8) H 12/11/16 14:30 INR 1.15 (0.93-1.08) H 12/11/16 14:30 APTT 29.0 Seconds (23.7-30.8) 12/11/16 14:30 - Constitutional Appears: Non-toxic, No Acute Distress - Head Exam Head Exam: NORMAL INSPECTION - Respiratory Exam Respiratory Exam: Decreased Breath Sounds - Cardiovascular Exam Cardiovascular Exam: +S1, +S2 - GI/Abdominal Exam GI & Abdominal Exam: Soft. absent: Tenderness - Extremities Exam Additional comments: right knee with wound vacuum in place Assessment and Plan - Assessment and Plan (Free Text) Plan: assessment sepsis due to right knee area skin and skin structure infection (pre-patellar) S /P I and D POD #3, MRSA growing, clinically improving Plan continue Vancomycin day 4 (from I and D); blood cx are negative; OR cultures showing MRSA - recommend changing to PO Zyvox to complete a 7 day course on discharge
--- NOTE | 2016-12-16 05:39 | DS ---
Eladio Huber was here with very bad right knee infection and also he had I and D with orthopedic doctors. He is on IV antibiotics by the infectious disease doctor. He is going to go home with a wound VAC. He will be followed up in the outpatient with orthopedics. He is going to go home on Bactroban cream, Tramadol and oral medications, which they have arranged with the case management. He is comfortable. He has no pain. He is moving a leg better. He is in better spirits. PHYSICAL EXAMINATION: VITAL SIGNS: 97.5 temp, 65 pulse, 114/77 blood pressure, 18 respiratory rate and 99% O2 sat on room air. HEENT: Head is atraumatic and normocephalic. NECK: Supple. HEART: Regular rate. LUNGS: Clear to auscultation. ABDOMEN: Soft. EXTREMITIES: The right knee is bandaged with a wound VAC. Less swollen, improving. LABORATORY DATA: He has a 8.6 white count, 12.2 hemoglobin, 36.3 hematocrit and 260 platelets. Sodium 141, potassium is 4, BUN is 19 and creatinine is 1. GFR is greater than 60. Sugar is 95. Calcium is 8.8. Total bilirubin is 0.3. AST is 27, ALT is 45, alk phos is 49, total protein 6.3 and albumin is 3.1. He has been seen by infectious disease and orthopedics. He will go home with wound VAC, being arranged by the oncology social work. He will be followed on the outpatient with orthopedics, could be on Zyvox p.o. for 7-day course and hope he will do very well and follow up with his primary care doctor on the outpatient. Chao Franco DO
--- NOTE | 2016-12-18 07:35 | PQF DEBRID ---
This form is a permanent part of the medical record Dr. Mei, Chart reflects in the operative report "any necrotic skin edges were sharply debrided". Please clarify if this an excisional or non-excisional debridement. Thank you. Clarification of your documentation is requested to better reflect the severity of illness and intensity of treatment of your patient. Indicators present [] Documentation of wound care / debridement [] Technique: [] [] Instrument used:[] [] Nature of Tissue Removed:[] [] Appearance of Wound:[] [] Size of Wound: [] [] Depth of Debridement: [] [] Other: [] Location in the medical record that reflects the above clinical findings: [] OPERATIVE NOTE (12/11/16) Other Treatment Provided: [] PHYSICIAN'S RESPONSE Based on your medical judgment, can you further clarify the precise NATURE, DEPTH, EXTENT and / or METHODS of wound debridement utilized in this case: [] EXCISIONAL debridement use of a scalpel / blade to cut away tissue Depth (subcutaneous, fascia, muscle, soft tissue and bone) [] Size of Wound [] NON-EXCISIONAL debridement chemical, scrubbing, trimming with a scissor/ versajet [] Other, please indicate: [] [] If unable to determine, please check the box, sign and date. In responding to this query, please exercise your independent professional judgment. The fact that a question is asked does not imply that any particular answer is desired or expected. Thank you for your clarification on this documentation. If you have any questions please call:[ ] * Thank you, [ ]MAXINE HOUSTONhuman services instructor NORMA
== END 2016-12-15 14:30 | disposition home health service (06) | DRG 854 ==
LOC: ED 01:10 → ERH 04:18 → 5RNO 05:48 → OBSVTOIN 10:26 → UNDODISIN 12-15 13:03
PROVIDERS: ADMIT Family Medicine; ATTEND Family Medicine
PROC: 0JBN0ZZ Excision of Right Lower Leg Subcutaneous Tissue and Fascia, Open Approach (ICD-10-PCS; principal; 2016-12-11 11:15)
DX: A41.9 Sepsis, unspecified organism (principal); L02.415 Cutaneous abscess of right lower limb; L03.115 Cellulitis of right lower limb; B95.62 Methicillin resistant Staphylococcus aureus infection as the cause of diseases classified elsewhere